=== PATIENT | female | born 1980 | race Caucasian/White ===

== ENCOUNTER 2017-12-03 20:42 | Emergency (ER) | payer SELFPAY ==
[~2017-12-03] VITALS: Ht 142.2 cm; Wt 72.3 kg
[~2017-12-03 20:42] MED LIST: ALBU8.5H8 IH
[2017-12-03 21:30] VITALS: BP 121/84
[2017-12-03] MEDS ORDERED: IBUPROFEN 600 MG TABLET PO ONE (21:45)
== END 2017-12-03 22:33 | disposition home or self-care (01) ==
LOC: EMS 20:43
DX: M25.562 Pain in left knee (principal); M25.561 Pain in right knee; L73.9 Follicular disorder, unspecified; J45.909 Unspecified asthma, uncomplicated; Z79.899 Other long term (current) drug therapy
CPT/HCPCS: 99282